=== PATIENT | female | born 1980 | race Caucasian/White ===

== ENCOUNTER 2016-11-22 17:31 | Emergency (ER) | payer MEDICARE, MEDICAID ==
[2016-11-22 19:28] VITALS: BP 122/66
--- NOTE | 2016-11-22 20:41 | UC ---
Lower Extremity/Ankle HPI - HPI Summary HPI Summary: 36 female presents today with close friend and fiance stating she experienced a fall over the past weekend 11/17/16 while ice skating and hit her left knee on the ice. Patient does not complain of any pain today however she has a home nurse that visits her that she told about the fall and was advised to come and have it checked out due to her osteoporosis history. Patient denies any pain, tenderness, edema, limited ROM, and numbness/tingling. She was just following instructions by her at home nurse. Denies hitting her head, LOC and any other injuries/pain. - History of Current Complaint Chief Complaint: UCLowerExtremity Stated Complaint: LEFT KNEE-FELL ON ICE Time Seen by Provider: 11/22/16 20:31 Hx Obtained From: Patient, Family/Drawing Frame Tender - friend and fiance Hx Last Menstrual Period: 11/02/16 ?: No Onset/Duration: Sudden Onset Severity Currently: None Pain Intensity: 0 Pain Scale Used: 0-10 Numeric Aggravating Factor(s): Nothing Alleviating Factor(s): Nothing Able to Bear Weight: Yes - Allergies/Home Medications Allergies/Adverse Reactions: Allergies Allergy/AdvReac Type Severity Reaction Status Date / Time Bee Venom Allergy Anaphylatic Verified 11/22/16 19:28 Shock BEE STINGS Allergy Severe Anaphylatic Uncoded 11/22/16 19:28 Shock PMH/Surg Hx/FS Hx/Imm Hx - Additional Past Medical History Additional PMH: osteoporosis, MR - Surgical History Surgical History: Yes Surgery Procedure, Year, and Place: WISDOM TEETH EXTRACTION WITH GENERAL ANESTHESIA - Family History Family History: Unknown if she has any medical issues in bio lineage--MR living in residential facility - Social History Alcohol Use: None Substance Use Type: None Smoking Status (MU): Never Smoked Tobacco - Immunization History Most Recent Influenza Vaccination: none Most Recent Tetanus Shot: 06/27/11 Review of Systems Constitutional: Negative Skin: Negative Eyes: Negative ENT: Negative Respiratory: Negative Cardiovascular: Negative Gastrointestinal: Negative Genitourinary: Negative Motor: Negative Neurovascular: Negative Musculoskeletal: Other: - does have a contusion on left knee Neurological: Negative Psychological: Negative All Other Systems Reviewed And Are Negative: Yes Physical Exam Triage Information Reviewed: Yes Appearance: Well-Appearing, No Pain Distress, Well-Nourished Vital Signs: Initial Vital Signs Temp 98.9 F 11/22/16 19:21 Pulse 67 11/22/16 19:21 Resp 16 11/22/16 19:21 BP 122/66 11/22/16 19:21 Pulse Ox 100 11/22/16 19:21 Vital Signs Reviewed: Yes Eye Exam: Normal Neck: Positive: Supple, Nontender Respiratory: Positive: Chest non-tender, Lungs clear, Normal breath sounds Cardiovascular: Positive: RRR, No Murmur, Pulses Normal - 3+ b/l pedal pulses, Brisk Capillary Refill Abdomen Description: Positive: Nontender Musculoskeletal: Positive: Strength Intact - able to bear weight and walk without pain, no hip or ankle pain. totally normal physical exam of lower extremities. no step-off, crepitus, dislocations or deformitites, ROM Intact, No Edema - healing ecchymosis noted on left anterior knee, medial to platella Neurological Exam: Normal Psychological Exam: Normal Skin Exam: Normal Lower Extremity Course/Dx - Course Course Of Treatment: due to history and physical exam, x-ray was not necessary at this time. if symptoms begin instructed to be seen back at or her primary care provider - Differential Dx/Diagnosis Differential Diagnosis/HQI/PQRI: Arthritis, Contusion, Dislocation, Sprain, Strain Provider Diagnoses: left knee contusion Discharge - Discharge Plan Condition: Good Disposition: HOME Patient Education Materials: Contusion in Adults (ED) Referrals: Shelbie Bermudez MD [Primary Care Provider] - Additional Instructions: If pain develops or symptoms change please return to or follow up with your primary care provider.
== END 2016-11-22 20:53 | disposition home or self-care (01) ==
LOC: UCCORT 17:31
DX: S80.02XA Contusion of left knee, initial encounter (principal); V00.211A Fall from ice-skates, initial encounter; Y93.21 Activity, ice skating; Y92.9 Unspecified place or not applicable
CPT/HCPCS: 99211; G0463

== ENCOUNTER 2017-03-17 15:02 | Emergency (ER) | payer MEDICARE, MEDICAID ==
[2017-03-17 16:33] VITALS: BP 114/71
--- NOTE | 2017-03-17 16:55 | UC ---
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 Skin Exposure Onset/Duration: Days Ago - 1, no known exposure Timing: Constant Onset Severity: Mild Current Severity: Mild Location: Discrete - Bilateral upper arms below t-shirt lines. Character: Pruritus, Redness - papules - Allergy/Home Medications Allergies/Adverse Reactions: Allergies Allergy/AdvReac Type Severity Reaction Status Date / Time Bee Venom Allergy Anaphylatic Verified 03/17/17 16:33 Shock BEE STINGS Allergy Severe Anaphylatic Uncoded 03/17/17 16:33 Shock Home Medications: Home Medications Azelastine 0.15% NASAL(NF) [Astepro 0.15% NASAL (NF)] 2 spray NASAL DAILY [History Confirmed 03/17/17] Benzoyl Peroxide [Clearasil Daily Clear Van] 10 % EX DAILY 03/17/17 [History Confirmed 03/17/17] Fexofenadine HCl [Allergy 24-Hr] 180 mg PO DAILY 03/17/17 [History Confirmed ] Norethindrone & Eth Estradiol [Dasetta ] 1 tab PO DAILY 03/17/17 [History Confirmed 03/17/17] Saline NASAL DROPS 0.65%* [Sodium Chloride 0.65% Nasal DROPS*] 2 drop BOTH NARES BID 03/17/17 [History Confirmed 03/17/17] Review of Systems Skin: Rash All Other Systems Reviewed And Are Negative: Yes PMH/Surg Hx/FS Hx/Imm Hx Previously Healthy: No - . Prader-Willi Syndrome - Surgical History Surgical History: Yes Surgery Procedure, Year, and Place: WISDOM TEETH EXTRACTION WITH GENERAL ANESTHESIA - Family History Known Family History: Negative: Cardiac Disease, Hypertension, Diabetes Family History: Unknown if she has any medical issues in bio lineage--MR living in residential facility - Social History Occupation: Disabled Lives: [facility] Alcohol Use: None Substance Use Type: None Smoking Status (MU): Never Smoked Tobacco Have You Smoked in the Last Year: No - Immunization History Most Recent Influenza Vaccination: none Most Recent Tetanus Shot: 8/30/11 Physical Exam Triage Information Reviewed: Yes Appearance: Well-Appearing, No Pain Distress, Well-Nourished Vital Signs: Initial Vital Signs Temp 99.4 F 03/17/17 16:24 Pulse 65 03/17/17 16:24 Resp 16 03/17/17 16:24 BP 114/71 03/17/17 16:24 Pulse Ox 98 03/17/17 16:24 Vital Signs Reviewed: Yes Eyes: Positive: Conjunctiva Clear Neck exam: Normal Respiratory Exam: Normal Cardiovascular Exam: Normal Abdominal Exam: Normal Musculoskeletal Exam: Normal Neurological Exam: Normal Psychological Exam: Normal Skin: Positive: rashes - erythematous papular rash on the dorsum of both arms Course/Dx - Differential Diagnoses - Skin Complaint Differential Diagnoses: Drug Rash, Local Allergic Reaction, Poison Vanesa, Scabies - Diagnoses Provider Diagnoses: Polymorphous Light Eruption Discharge - Discharge Plan Condition: Stable Disposition: HOME Patient Education Materials: Photosensitivity (ED) Additional Instructions: You should stay out of the sun and/ or use sunscreen. You can use the benedryl for itching. Polymorphous Light Eruption. Images Front/Back of Body, Lg (Crook): 1 - papular rash 2 - papular rash
== END 2017-03-17 17:43 | disposition home or self-care (01) ==
LOC: UCCORT 15:02
DX: L56.4 Polymorphous light eruption (principal); Q87.1 Congenital malformation syndromes predominantly associated with short stature; F79 Unspecified intellectual disabilities; Z91.030 Bee allergy status
CPT/HCPCS: 99211; G0463

== ENCOUNTER 2017-05-22 19:40 | Emergency (ER) | payer MEDICARE, MEDICAID ==
[2017-05-22 19:55] VITALS: BP 115/73
--- NOTE | 2017-05-22 20:36 | UC ---
Skin Complaint HPI - HPI Summary HPI Summary: patient has large swollen paraonychia on the right middle finger - History of Current Complaint Chief Complaint: UCUpperExtremity Time Seen by Provider: 05/22/17 19:55 Stated Complaint: SWOLLEN RIGHT MIDDLE FINGER Hx Obtained From: Patient Hx Last Menstrual Period: 05/02/17 ?: No Onset/Duration: Gradual Onset, Lasting Days Skin Exposure Onset/Duration: Days Ago Timing: Constant Onset Severity: Mild Current Severity: Moderate Character: Swelling Associated Signs & Symptoms: Positive: Negative - Allergy/Home Medications Allergies/Adverse Reactions: Allergies Allergy/AdvReac Type Severity Reaction Status Date / Time Bee Venom Allergy Anaphylatic Verified 05/22/17 19:55 Shock BEE STINGS Allergy Severe Anaphylatic Uncoded 05/22/17 19:55 Shock Review of Systems Constitutional: Negative Skin: Negative Eyes: Other - swelling of right middle finger ENT: Negative Respiratory: Negative Cardiovascular: Negative Gastrointestinal: Negative Genitourinary: Negative Motor: Negative Neurovascular: Negative Musculoskeletal: Negative Neurological: Negative Psychological: Negative All Other Systems Reviewed And Are Negative: Yes PMH/Surg Hx/FS Hx/Imm Hx Previously Healthy: Yes - Surgical History Surgical History: Yes Surgery Procedure, Year, and Place: WISDOM TEETH EXTRACTION WITH GENERAL ANESTHESIA - Family History Known Family History: Negative: Cardiac Disease, Hypertension, Diabetes Family History: Unknown if she has any medical issues in bio lineage--MR living in residential facility - Social History Alcohol Use: None Substance Use Type: None Smoking Status (MU): Never Smoked Tobacco Have You Smoked in the Last Year: No - Immunization History Most Recent Influenza Vaccination: none Most Recent Tetanus Shot: 06/27/11 Physical Exam Triage Information Reviewed: Yes Appearance: Well-Appearing, Well-Nourished, Pain Distress Vital Signs: Initial Vital Signs Temp 98.1 F 05/22/17 19:50 Pulse 72 05/22/17 19:50 Resp 14 05/22/17 19:50 BP 115/73 05/22/17 19:50 Pulse Ox 100 05/22/17 19:50 Vital Signs Reviewed: Yes Eye Exam: Normal ENT Exam: Normal ENT: Positive: Hearing grossly normal, Pharynx normal, TMs normal Dental Exam: Normal Neck exam: Normal Neck: Positive: Supple, Nontender, No Lymphadenopathy Respiratory Exam: Normal Respiratory: Positive: Chest non-tender, Lungs clear Cardiovascular Exam: Normal Cardiovascular: Positive: RRR, No Murmur, Pulses Normal Abdominal Exam: Normal Abdomen Description: Positive: Nontender, No Organomegaly, Soft Bowel Sounds: Positive: Present Musculoskeletal Exam: Normal Musculoskeletal: Positive: Strength Intact, ROM Intact, No Edema Neurological Exam: Normal Neurological: Positive: Alert, Muscle Tone Normal Psychological Exam: Normal Skin: Positive: Other - right middle finger paronychia, Course/Dx - Course Course Of Treatment: hx obtained, exam performed, medication reviewed, i and d attempted, patient did not tolerate, warm water soak performed and educated on need for the next few days. - Differential Diagnoses - Skin Complaint Differential Diagnoses: Cellulitis, Local Allergic Reaction, Urticaria - Diagnoses Provider Diagnoses: paronychia of the right middle finger Discharge - Discharge Plan Condition: Stable Disposition: HOME Patient Education Materials: Paronychia (ED) Additional Instructions: 1. take the medication as prescribed. 2. Warm water soaks 3 x a day.
[2017-05-22] MEDS ORDERED: Cephalexin CAP* 500 MG PO ONE (20:39)
== END 2017-05-22 20:49 | disposition home or self-care (01) ==
LOC: UCCORT 19:40
DX: L03.011 Cellulitis of right finger (principal); Z91.030 Bee allergy status
CPT/HCPCS: 99212; A9270-GY; G0463

== ENCOUNTER 2017-09-29 11:15 | Emergency (ER) | payer MEDICARE, MEDICAID ==
[2017-09-29 12:37] VITALS: BP 115/71
--- NOTE | 2017-09-29 13:12 | UC ---
Throat Pain/Nasal Daquan HPI - HPI Summary HPI Summary: no fevers, a couple days of cough with sore throat, no nasal drainage or ear aches - History of Current Complaint Chief Complaint: UCRespiratory Stated Complaint: THROAT COMPLAINT Time Seen by Provider: 09/29/17 12:56 Hx Obtained From: Patient Hx Last Menstrual Period: September 14 ?: No Onset/Duration: Gradual Onset, Lasting Days - 2-3, Still Present Severity: Moderate Cough: None - Allergies/Home Medications Allergies/Adverse Reactions: Allergies Allergy/AdvReac Type Severity Reaction Status Date / Time Bee Venom Allergy Anaphylatic Verified 09/29/17 12:31 Shock BEE STINGS Allergy Severe Anaphylatic Uncoded 09/29/17 12:31 Shock PMH/Surg Hx/FS Hx/Imm Hx Previously Healthy: No - MR Psychological History: Depression - Surgical History Surgical History: Yes Surgery Procedure, Year, and Place: WISDOM TEETH EXTRACTION WITH GENERAL ANESTHESIA. nose - Family History Known Family History: Negative: Cardiac Disease, Hypertension, Diabetes Family History: Unknown if she has any medical issues in bio lineage--MR living in residential facility - Social History Occupation: Employed Part-time, Disabled Lives: Assisted Living Alcohol Use: None Substance Use Type: None Smoking Status (MU): Never Smoked Tobacco Have You Smoked in the Last Year: No - Immunization History Most Recent Influenza Vaccination: none Most Recent Tetanus Shot: 06/27/11 Review of Systems Constitutional: Negative Skin: Negative Eyes: Negative ENT: Sore Throat Respiratory: Cough Cardiovascular: Negative Gastrointestinal: Negative Genitourinary: Negative Motor: Negative Neurovascular: Negative Musculoskeletal: Negative Neurological: Negative Psychological: Negative Is Patient Immunocompromised?: No All Other Systems Reviewed And Are Negative: Yes Physical Exam Triage Information Reviewed: Yes Appearance: Well-Appearing, No Pain Distress, Well-Nourished Vital Signs: Initial Vital Signs Temp 98.5 F 09/29/17 12:33 Pulse 63 09/29/17 12:33 Resp 18 09/29/17 12:33 BP 115/71 09/29/17 12:33 Pulse Ox 100 09/29/17 12:33 Vital Signs Reviewed: Yes Eye Exam: Normal Eyes: Positive: Conjunctiva Clear ENT Exam: Normal ENT: Positive: Normal ENT inspection, Hearing grossly normal, Pharynx normal, TMs normal, Uvula midline. Negative: Nasal congestion, Tonsillar swelling, Trismus, Muffled voice, Hoarse voice, Sinus tenderness Dental Exam: Normal Neck exam: Normal Neck: Positive: Supple, Nontender, No Lymphadenopathy Respiratory Exam: Normal Respiratory: Positive: Chest non-tender, Lungs clear, Normal breath sounds, No respiratory distress, No accessory muscle use Cardiovascular Exam: Normal Cardiovascular: Positive: RRR, No Murmur, Pulses Normal, Brisk Capillary Refill Musculoskeletal Exam: Normal Musculoskeletal: Positive: Strength Intact, ROM Intact, No Edema Neurological Exam: Normal Neurological: Positive: Alert, Muscle Tone Normal Psychological Exam: Normal Skin Exam: Normal Throat Pain/Nasal Course/Dx - Course Assessment/Plan: fluids as diet tolerates, tessalon, sudafed, tylenol, ibuprofen follow with nurse in facility on Sunday - Differential Dx/Diagnosis Provider Diagnoses: URI, Viral Pharyngitis Discharge - Discharge Plan Condition: Stable Disposition: HOME Prescriptions: Benzonatate CAP* [Tessalon 100 MG CAP*] 100 mg PO TID PRN #20 cap PRN Reason: Cough Patient Education Materials: Cold Symptoms (ED), Acute Cough (ED) Referrals: Ileana Bermudez MD [Primary Care Provider] - 4 Days
== END 2017-09-29 13:25 | disposition home or self-care (01) ==
LOC: UCCORT 11:15
DX: J06.9 Acute upper respiratory infection, unspecified (principal); J02.9 Acute pharyngitis, unspecified; F32.9 Major depressive disorder, single episode, unspecified
CPT/HCPCS: 87651; 99212; G0463

== ENCOUNTER 2017-11-04 17:50 | Emergency (ER) | payer MEDICARE, MEDICAID ==
[2017-11-04 18:31] VITALS: BP 123/74
--- NOTE | 2017-11-04 18:49 | UC ---
Skin Complaint HPI - HPI Summary HPI Summary: C/O itching rash on both feet since yesterday. Started left foot, now both feet. - History of Current Complaint Chief Complaint: UCSkin Time Seen by Provider: 11/04/17 18:40 Stated Complaint: SKIN COMPLAINT ON FEET Hx Obtained From: Patient, Family/Yardmaster Hx Last Menstrual Period: September 14 ?: No Onset/Duration: Sudden Onset, Lasting Days - 1, Worse Since - onset Skin Exposure Onset/Duration: Days Ago - new jorge socks that haven't been washed. Onset Severity: Mild Current Severity: Mild Location: Foot (Right), Foot (Left) Character: Pruritus, Redness Aggravating Factor(s): Touch Alleviating Factor(s): Nothing Associated Signs & Symptoms: Positive: Rash. Negative: Drainage, Tenderness, Red Streaks Related History: Possible Reaction to: Environmental Exposure - new socks. - Allergy/Home Medications Allergies/Adverse Reactions: Allergies Allergy/AdvReac Type Severity Reaction Status Date / Time Bee Venom Allergy Anaphylatic Verified 11/04/17 18:31 Shock BEE STINGS Allergy Severe Anaphylatic Uncoded 11/04/17 18:31 Shock Review of Systems Skin: Rash Is Patient Immunocompromised?: No All Other Systems Reviewed And Are Negative: Yes PMH/Surg Hx/FS Hx/Imm Hx Other Neurological History: MR and Prader Willi - Surgical History Surgical History: Yes Surgery Procedure, Year, and Place: WISDOM TEETH EXTRACTION WITH GENERAL ANESTHESIA. nose - Family History Known Family History: Negative: Cardiac Disease, Hypertension, Diabetes Family History: Unknown if she has any medical issues in bio lineage--MR living in residential facility - Social History Occupation: Disabled Lives: [facility] Alcohol Use: None Substance Use Type: None Smoking Status (MU): Never Smoked Tobacco Have You Smoked in the Last Year: No - Immunization History Most Recent Influenza Vaccination: none Most Recent Tetanus Shot: 06/27/11 Physical Exam Triage Information Reviewed: Yes Appearance: Well-Appearing, No Pain Distress, Well-Nourished Vital Signs: Initial Vital Signs Temp 99.6 F 11/04/17 18:26 Pulse 72 11/04/17 18:26 Resp 14 11/04/17 18:26 BP 123/74 11/04/17 18:26 Pulse Ox 100 11/04/17 18:26 Vital Signs Reviewed: Yes Eyes: Positive: Conjunctiva Clear Neck exam: Normal Respiratory Exam: Normal Cardiovascular Exam: Normal Musculoskeletal Exam: Normal Neurological Exam: Normal Psychological Exam: Normal Skin: Positive: rashes - erythematous papular rash on the dorsal feet. Course/Dx - Differential Diagnoses - Skin Complaint Differential Diagnoses: Allergic Reaction, Contact Dermatitis, Local Allergic Reaction, Urticaria - Diagnoses Provider Diagnoses: contact dermatitis. Discharge - Discharge Plan Condition: Stable Disposition: HOME Prescriptions: Triamcinolone 0.1% CREAM (NF) [Kenalog 0.1% Cream (NF)] 1 applic TOPICAL BID # 15 gm Patient Education Materials: Contact Dermatitis (ED), Triamcinolone (On the skin) Referrals: Ileana Bermudez MD [Primary Care Provider] -
== END 2017-11-04 19:17 | disposition home or self-care (01) ==
LOC: UCCORT 17:50
DX: L25.9 Unspecified contact dermatitis, unspecified cause (principal)
CPT/HCPCS: 99212; G0463

== ENCOUNTER 2018-01-03 16:34 | Emergency (ER) | payer MEDICARE, MEDICAID ==
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
[2018-01-03] MEDS ORDERED: Acetaminophen TAB* 325 MG PO ONE (17:24)
--- NOTE | 2018-01-03 19:06 | RAD ---
Indication: Head injury. CT of the brain was performed without IV contrast. Ventricular structures are midline. No midline shift is noted. The extra-axial spaces are unremarkable. There is no evidence of intracranial mass or hemorrhage. No other high or low density lesions are identified. Mastoid air cells and paranasal sinuses are grossly unremarkable. IMPRESSION: No intracranial mass or hemorrhage is noted.
[2018-01-03 19:10] VITALS: BP 126/86
== END 2018-01-03 19:16 | disposition home or self-care (01) ==
LOC: UCCORT 16:34
DX: S09.90XA Unspecified injury of head, initial encounter (principal); S00.93XA Contusion of unspecified part of head, initial encounter; Y04.8XXA Assault by other bodily force, initial encounter; Y93.9 Activity, unspecified; Y92.099 Unspecified place in other non-institutional residence as the place of occurrence of the external cause; R62.50 Unspecified lack of expected normal physiological development in childhood
CPT/HCPCS: 70450; 99212; A9270-GY; G0463

== ENCOUNTER 2018-04-12 07:07 | Emergency (ER) | payer MEDICARE, MEDICAID ==
[2018-04-12 07:28] VITALS: BP 120/72
--- NOTE | 2018-04-12 07:40 | UC ---
Upper Extremity HPI - HPI Summary HPI Summary: 38 yo female c/o R wrist pain, redness / swelling since yesterday. Hurts to move wrist, but able to move wrist. No fever / chills. No recall of a bite. No other arthritis / arthralgias. No gi / cp / sob / palp / sore throat. Tet utd per pt. - History of Current Complaint Chief Complaint: UCUpperExtremity Stated Complaint: RT WRIST PAIN Time Seen by Provider: 04/12/18 07:26 Hx Obtained From: Patient, Family/Detective Private Eye Hx Last Menstrual Period: 03/12/18 Pain Intensity: 9 - Allergies/Home Medications Allergies/Adverse Reactions: Allergies Allergy/AdvReac Type Severity Reaction Status Date / Time BEE STINGS Allergy Severe Anaphylatic Uncoded 04/12/18 07:28 Shock Home Medications: Home Medications Sodium Chloride/Aloe Vera [[place] Saline Nasal Gel] 14.1 gm NS BID 04/12/18 [ History Confirmed 04/12/18] PMH/Surg Hx/FS Hx/Imm Hx Previously Healthy: Yes - Surgical History Surgical History: Yes Surgery Procedure, Year, and Place: WISDOM TEETH EXTRACTION WITH GENERAL ANESTHESIA. SEPTOPLASTY - Family History Known Family History: Negative: Cardiac Disease, Hypertension, Diabetes Family History: Unknown if she has any medical issues in bio lineage--MR living in residential facility - Social History Alcohol Use: None Substance Use Type: None Smoking Status (MU): Never Smoked Tobacco Have You Smoked in the Last Year: No - Immunization History Most Recent Influenza Vaccination: none Most Recent Tetanus Shot: 06/27/11 Review of Systems Constitutional: Negative Skin: Other - see hpi Eyes: Negative ENT: Negative Respiratory: Negative Cardiovascular: Negative Gastrointestinal: Negative Genitourinary: Negative Motor: Other - see hpi Neurovascular: Other - see hpi Musculoskeletal: Arthralgia - see hpi Neurological: Negative Psychological: Negative Is Patient Immunocompromised?: No All Other Systems Reviewed And Are Negative: Yes Physical Exam Triage Information Reviewed: Yes Appearance: Well-Appearing, Well-Nourished Vital Signs: Initial Vital Signs Temp 99.2 F 04/12/18 07:17 Pulse 65 04/12/18 07:17 Resp 16 04/12/18 07:17 BP 120/72 04/12/18 07:17 Pulse Ox 100 04/12/18 07:17 Vital Signs Reviewed: Yes Eye Exam: Normal - grossly normal ENT Exam: Normal - grossly normal Neck exam: Normal Neck: Positive: Supple Respiratory Exam: Normal - no tachypnea, no dyspnea Cardiovascular Exam: Normal Abdominal Exam: Normal Abdomen Description: Positive: Nontender Musculoskeletal Exam: Other - Pt is both handed, writes with LH R distal wrist - with + redness, slight warm to touch, irreg shape - approx 5cm x 2.8cm. Tender pressure. No crepitus. Able to move wrist in all directions but painful Neurological Exam: Normal - grossly nonfocal Psychological Exam: Normal Skin Exam: Other - see mucs skel no other c/o's Upper Extremity Course/Dx - Course Course Of Treatment: Wrist xray - report in [facility]. Nonspec swelling. Reviewed coa / tx plan. Questions as posed answered to the best of my ability. F/u PCP next week. R wrist pain, swelling c/w cellulitis. c/n exclude inflamm arthritis - Differential Dx/Diagnosis Provider Diagnoses: R wrist pain, swelling c/w cellulitis Discharge - Sign-Out/Discharge Documenting (check all that apply): Discharge/Admit/Transfer - Discharge Plan Condition: Stable Disposition: HOME Patient Education Materials: Cellulitis (ED), Arthralgia (ED) Forms: *Work Release Referrals: Ileana Bermudez MD [Primary Care Provider] - Additional Instructions: Concern is for cellulitis. Blood tests ordered today. Follow up with your primary care physician next week. Confirm your tetanus immunization status. Seek medical attention for worse or new problems in the meantime. Splint as needed for comfort. No work until Sunday. Antibiotic as prescribed. Do not take on an empty stomach. Avoid prolonged sun exposure while taking antibiotic. Drink plenty of water. Do not take antibiotic within 2 hours of your vitamin or milk. - Billing Disposition and Condition Condition: STABLE Disposition: Home
--- NOTE | 2018-04-12 08:10 | RAD ---
INDICATION: Painful redness and swelling at the distal RIGHT ulna. COMPARISON: No relevant prior exams [place] [facility] [place]. TECHNIQUE: AP and lateral views RIGHT wrist. REPORT: Soft tissue swelling noted along the ulnar aspect of the wrist from the distal diaphysis of the ulna through the metacarpal region. Negative for fracture, malalignment, or arthropathic change. IMPRESSION: Nonspecific soft tissue swelling along the ulnar aspect of the wrist. No conspicuous foreign body or subcutaneous emphysema.
[2018-04-12 11:29] LABS: ABS Basophils 0 10^3/ul (0-0.2); ABS Eosinophils 0.2 10^3/ul (0-0.6); ABS Lymphocytes 1.2 10^3/ul (1.0-4.8); ABS Monocytes 0.4 10^3/ul (0-0.8); ABS Neutrophils 3.8 10^3/ul (1.5-7.7); ABS Nucleated RBC 0 10^3/ul; Eosinophil % 3.7 % (0-6); Hematocrit 40 % (35-47); Hemoglobin 13.1 g/dl (12.0-16.0); Lymphocyte % 21.7 % (25-47); Mean Corpuscular HGB Conc 33 g/dl (31-36); Mean Corpuscular Hemoglobin 31 pg (27-31); Mean Corpuscular Volume 92 fL (80-97); Mean Platelet Volume 9.4 um3 (7.4-10.4); Nucleated Red Blood Cells % 0; Platelet Count 235 10^3/ul (150-450); Red Blood Count 4.29 10^6/ul (4.00-5.40); Red Cell Distribution Width 13 % (10.5-15); White Blood Count 5.7 10^3/ul (3.5-10.8)
--- NOTE | 2018-04-13 08:24 | ED ---
Progress - Progress Note Progress Note: Please call the patient and advise her that her inflammatory markers have come back high. Unless her wrist is completely better and pain free she should go to the ER in [place] at [facility] to be seen by the hand surgeon to be sure she does not have a septic wrist. Course/Dx - Course Course Of Treatment: Wrist xray - report in [facility]. Nonspec swelling. Reviewed coa / tx plan. Questions as posed answered to the best of my ability. F/u PCP next week. R wrist pain, swelling c/w cellulitis. c/n exclude inflamm arthritis Discharge - Sign-Out/Discharge Documenting (check all that apply): Discharge/Admit/Transfer - Discharge Plan Condition: Stable Disposition: HOME Prescriptions: DOXYcycline CAP(*) [DOXYcycline 100MG CAP(*)] 100 mg PO BID #20 cap Patient Education Materials: Cellulitis (ED), Arthralgia (ED) Forms: *Work Release Referrals: Ileana Bermudez MD [Primary Care Provider] - Additional Instructions: Concern is for cellulitis. Blood tests ordered today. Follow up with your primary care physician next week. Confirm your tetanus immunization status. Seek medical attention for worse or new problems in the meantime. Splint as needed for comfort. No work until Sunday. Antibiotic as prescribed. Do not take on an empty stomach. Avoid prolonged sun exposure while taking antibiotic. Drink plenty of water. Do not take antibiotic within 2 hours of your vitamin or milk. - Billing Disposition and Condition Condition: STABLE Disposition: Home
== END 2018-04-12 08:38 | disposition home or self-care (01) ==
LOC: UCCORT 07:07
DX: M25.531 Pain in right wrist (principal); M25.431 Effusion, right wrist
CPT/HCPCS: 36415; 85025; 85652; 86140; 99213; G0463

== ENCOUNTER 2018-06-10 12:41 | Emergency (ER) | payer MEDICARE, MEDICAID ==
[2018-06-10 13:17] VITALS: BP 117/74
--- NOTE | 2018-06-10 13:41 | UC ---
Eye Complaint HPI - HPI Summary HPI Summary: pt had a pimple to bridge of nose yesterday and picked it. today, the site is red and swollen. no hx mrsa. no fever. - History of Current Complaint Chief Complaint: UCEye Stated Complaint: SWOLLEN RIGHT EYE Time Seen by Provider: 06/10/18 13:34 Hx Obtained From: Patient, Family/Credentialing Coordinator Hx Last Menstrual Period: unsure-on bcp Onset/Duration: Gradual Onset Timing: Constant Pain Intensity: 0 Alleviating Factor(s): Nothing Associated Signs And Symptoms: Negative: Photophobia, Vision Impairment Bilateral - Allergies/Home Medications Allergies/Adverse Reactions: Allergies Allergy/AdvReac Type Severity Reaction Status Date / Time BEE STINGS Allergy Severe Anaphylatic Uncoded 06/10/18 13:08 Shock PMH/Surg Hx/FS Hx/Imm Hx - Additional Past Medical History Additional PMH: allergies, cognitive limitations Psychological History: Anxiety - Surgical History Surgical History: Yes Surgery Procedure, Year, and Place: WISDOM TEETH EXTRACTION WITH GENERAL ANESTHESIA. SEPTOPLASTY - Family History Known Family History: Positive: None Negative: Cardiac Disease, Hypertension, Diabetes Family History: Unknown if she has any medical issues in bio lineage--MR living in residential facility - Social History Occupation: Employed Full-time Lives: Assisted Alcohol Use: None Substance Use Type: None Smoking Status (MU): Never Smoked Tobacco Have You Smoked in the Last Year: No - Immunization History Most Recent Influenza Vaccination: none Most Recent Tetanus Shot: 06/27/11 Vaccination Up to Date: Yes Review of Systems Constitutional: Negative Skin: Rash Eyes: Negative ENT: Negative Respiratory: Negative Cardiovascular: Negative Gastrointestinal: Negative Genitourinary: Negative Motor: Negative Neurovascular: Negative Musculoskeletal: Negative Neurological: Negative Psychological: Negative Is Patient Immunocompromised?: No All Other Systems Reviewed And Are Negative: Yes Physical Exam Triage Information Reviewed: Yes Appearance: Well-Appearing Vital Signs: Initial Vital Signs Temp 99.6 F 06/10/18 13:09 Pulse 69 06/10/18 13:09 Resp 18 06/10/18 13:09 BP 117/74 06/10/18 13:09 Pulse Ox 100 06/10/18 13:09 Vital Signs Reviewed: Yes Eyes: Positive: Conjunctiva Clear, Other: - PERRL, EOMI. No periorbital edema. ENT: Positive: Pharynx normal, TMs normal. Negative: Nasal congestion, Nasal drainage Neck: Positive: Supple, Nontender, No Lymphadenopathy Respiratory: Positive: Lungs clear, Normal breath sounds Cardiovascular: Positive: RRR, No Murmur Abdomen Description: Positive: Nontender, No Organomegaly, Soft Bowel Sounds: Positive: Present Musculoskeletal: Positive: ROM Intact Neurological: Positive: Alert Psychological: Positive: Age Appropriate Behavior Skin Exam: Normal, Other - R side of nose with an abrasion and surrounding mild swelling, warmth and erythema. Area not fluctuant. No auricular adenopathy. Eye Complaint Course/Dx - Course Course Of Treatment: no concern for absecess or periorbital/orbital cellulitis. - Differential Dx/Diagnosis Provider Diagnoses: Superficial skin infection R side of nose Discharge - Sign-Out/Discharge Documenting (check all that apply): Patient Departure - Discharge Plan Condition: Stable Disposition: HOME Prescriptions: Cephalexin CAP* [Keflex CAP*] 500 mg PO TID 7 Days #21 cap Mupirocin 2% OINT* [Bactroban 2 % Oint*] 1 applic TOPICAL BID 7 Days #1 tube Patient Education Materials: Cellulitis (ED) Referrals: Ileana Bermudez MD [Primary Care Provider] - 3 Days - Billing Disposition and Condition Condition: STABLE Disposition: Home
== END 2018-06-10 14:01 | disposition home or self-care (01) ==
LOC: UCCORT 12:41
DX: L08.9 Local infection of the skin and subcutaneous tissue, unspecified (principal)
CPT/HCPCS: 99212; G0463

== ENCOUNTER 2018-11-04 14:31 | Emergency (ER) | payer MEDICARE, MEDICAID ==
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
[2018-11-04 15:05] VITALS: BP 128/76
--- NOTE | 2018-11-04 15:07 | UC ---
Head Injury HPI - HPI Summary HPI Summary: Patient presents to urgent care for evaluation of a scalp wound. Patient states that approximately 12:30pm today she was putting laundry away and her dresser. Patient states she had a snow globe that fell off a dresser on the top of her head. Patient states is notable did not break.. No blood or open wounds. No blood HEENT. No loss of consciousness. No vision changes. No nausea. No confusion. No headache. No vision changes. Patient's issues has tenderness on her scalp at the site of injury. Patient states when she touches injury she feels as a dent wanted checked. Patient has a when necessary ibuprofen order she was in a halfway. Patient did not take any. Patient is not applied ice. Patient states she has no complaints other than when she touches the wound. Patient is not on any anticoagulation. Patient medication list/ MAR reviewed this visit. 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, Medical Records Hx Last Menstrual Period: infrequent due to BCP use ?: No Onset/Duration: Sudden Onset Severity Currently: None Severity Initially: Mild Pain Intensity: 0 - Allergies/Home Medications Allergies/Adverse Reactions: Allergies Allergy/AdvReac Type Severity Reaction Status Date / Time BEE STINGS Allergy Severe Anaphylatic Uncoded 11/04/18 14:58 Shock PMH/Surg Hx/FS Hx/Imm Hx Previously Healthy: Yes - Prader Willi Syndrome Endocrine History: Hypothyroidism, Other - hypoglycemia, hyponatremia - Surgical History Surgical History: Yes Surgery Procedure, Year, and Place: WISDOM TEETH EXTRACTION WITH GENERAL ANESTHESIA. SEPTOPLASTY - Family History Known Family History: Positive: None Negative: Cardiac Disease, Hypertension, Diabetes Family History: Unknown if she has any medical issues in bio lineage--MR living in residential facility - Social History Lives: Jail Alcohol Use: None Substance Use Type: None Smoking Status (MU): Never Smoked Tobacco Have You Smoked in the Last Year: No - Immunization History Most Recent Influenza Vaccination: none Most Recent Tetanus Shot: 06/27/11 Vaccination Up to Date: Yes Review of Systems All Other Systems Reviewed And Are Negative: Yes Skin: Positive: Other - focal scalp swelling Physical Exam - Summary Physical Exam Summary: Vital Signs Reviewed: Yes A+Ox3, no distress Eyes: Conjunctiva Clear, RAVI. EOM intact and full ENT: Hearing grossly normal TM x 2 clear, mmoist, uvula midline, no exudate, no erythema Neck: Positive: Supple Respiratory: Positive: No respiratory distress, No accessory muscle use + CTA throughout no w/r Cardiovascular: RRR nl s1, s2 no m/r CBT <2 sec abd soft + BS nt/nd no guarding, no distension Musculoskeletal Exam: neck supple no pain c/t//l/sMAE x 4 without difficulty Strength Intact, ROM Intact Neurological: Positive: Alert, + sensation throughout skin: intact, no abraison, open wound posterior margin of frontal area pt with small soft tissue swelling. No ecchymosis, Not fluctuant no crepitus mild TTP CN 2-12 intact and full + FNF b/l 5/5 abduction, flex/ext elbow, wrist against resistant 5/5 SLE, flex/ext knee, ankle + gross sensation throughout neg rhomberg + heel/toe tandem + heel/toe rocking Psychological: Positive: Normal Response To Family, appropriate Triage Information Reviewed: Yes Vital Signs: Initial Vital Signs Temp 99.3 F 11/04/18 15:00 Pulse 85 11/04/18 15:00 Resp 18 11/04/18 15:00 BP 128/76 11/04/18 15:00 Pulse Ox 98 11/04/18 15:00 Head Injury Course/Dx - Course Course Of Treatment: Pt presents to urgent care for evaluation of a scalp contusion that occurred at 12:30pm today when a snow globe fell off her dresser. No loss of consciousness. No blood HEENT. Patient with focal soft tissue swelling and discomfort. no neck or back pain. non-concerning neuro exam. Patient did not take anything for pain. Patient apply ice. Patient is not on any blood thinners. Patient's vital signs reviewed and not concerning. On exam patient with soft tissue to swelling but no crepitus. Discussed with patient and home care consultant at length regarding concussions and closed head injury. Low suspicion for intracranial process and will defer imaging at this time. Signs and symptoms to watch for reviewed. Patient has a. Motrin or encourage her to take it. Also wrote for patient. Use ice as needed. Patient comfortable in agreement with plan. - Differential Dx/Diagnosis Provider Diagnosis: Contusion of soft tissue, Head contusion Discharge - Sign-Out/Discharge Documenting (check all that apply): Patient Departure All imaging exams completed and their final reports reviewed: No Studies - Discharge Plan Condition: Stable Disposition: HOME Patient Education Materials: Contusion in Adults (ED) Referrals: Ileana Bermudez MD [Primary Care Provider] - Additional Instructions: - Okay to apply ice (wrapped in a towel) 10 minutes at a time, 2-3 times a day as needed for discomfort and swelling - Okay to take ibuprofen (Motrin, Advil) as needed and previously prescribed ordered for pain - If you develop confusion, vomiting, vision changes, difficulty with walking and balance it is recommended you go to the emergency department or contact your doctor for re-evaluation - Billing Disposition and Condition Condition: STABLE Disposition: Home
== END 2018-11-04 15:30 | disposition home or self-care (01) ==
LOC: UCCORT 14:31
DX: S00.03XA Contusion of scalp, initial encounter (principal); W20.8XXA Other cause of strike by thrown, projected or falling object, initial encounter; Y93.89 Activity, other specified; Y92.003 Bedroom of unspecified non-institutional (private) residence as the place of occurrence of the external cause
CPT/HCPCS: 99211; G0463

== ENCOUNTER 2019-01-18 16:44 | Emergency (ER) | payer MEDICARE, MEDICAID ==
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
[2019-01-18 17:01] VITALS: BP 135/83
--- NOTE | 2019-01-18 17:12 | UC ---
UC General HPI - HPI Summary HPI Summary: yesterday, pt noted the back and sides of her neck were sore. today,she is c/o a sore throat as well. neck pain worsens when she turns her head and the sore throat is worse when she swallows. no fever. no injury. 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 Hx Last Menstrual Period: last month Onset/Duration: Gradual Onset Timing: Constant Pain Intensity: 9 Associated Signs & Symptoms: Negative: Fever, Headache - Allergy/Home Medications Allergies/Adverse Reactions: Allergies Allergy/AdvReac Type Severity Reaction Status Date / Time BEE STINGS Allergy Severe Anaphylatic Uncoded 01/18/19 16:55 Shock PMH/Surg Hx/FS Hx/Imm Hx - Additional Past Medical History Additional PMH: allergies, prader willi syndrom, mild MR, hypoglycemia, hyponatremia Psychological History: Depression - Surgical History Surgical History: Yes Surgery Procedure, Year, and Place: WISDOM TEETH EXTRACTION WITH GENERAL ANESTHESIA. SEPTOPLASTY - Family History Known Family History: Positive: None Negative: Cardiac Disease, Hypertension, Diabetes Family History: Unknown if she has any medical issues in bio lineage--MR living in residential facility - Social History Occupation: Employed Part-time Alcohol Use: None Substance Use Type: None Smoking Status (MU): Never Smoked Tobacco Have You Smoked in the Last Year: No - Immunization History Most Recent Influenza Vaccination: none Most Recent Tetanus Shot: 06/27/11 Vaccination Up to Date: Yes Review of Systems All Other Systems Reviewed And Are Negative: Yes ENT: Positive: Sore Throat Musculoskeletal: Positive: Other: - neck pain Physical Exam Triage Information Reviewed: Yes Appearance: Well-Appearing Vital Signs: Initial Vital Signs Temp 98.1 F 01/18/19 16:57 Pulse 91 01/18/19 16:57 Resp 18 01/18/19 16:57 BP 135/83 01/18/19 16:57 Pulse Ox 100 01/18/19 16:57 Vital Signs Reviewed: Yes Eyes: Positive: Conjunctiva Clear ENT: Positive: Pharynx normal - dry but no swelling, TMs normal, Uvula midline. Negative: Nasal congestion, Nasal drainage, Trismus, Muffled voice, Hoarse voice Neck: Positive: No Lymphadenopathy, Other: - Tender over sides of posterior cervical area and sternocleidomastoid mm's. The cervical spine is not tender. Pain worsens with active rom. ROM is intact. Thoracic and lumbar spine and back are not tender.. Negative: Nuchal Rigidity Respiratory: Positive: Lungs clear, Normal breath sounds, No respiratory distress Cardiovascular: Positive: RRR, No Murmur Abdomen Description: Positive: Nontender, No Organomegaly, Soft Bowel Sounds: Positive: Present Musculoskeletal: Positive: ROM Intact Neurological: Positive: Alert Psychological: Positive: Normal Response To Family - supervisor cold rolling, Age Appropriate Behavior - per pt baseline Skin Exam: Normal Skin: Negative: Rashes Diagnostics - Radiology No standard instances Radiology Interpretation Completed By: Radiologist - IMPRESSION: UNREMARKABLE SOFT TISSUES OF THE NECK. Course/Dx - Course Course Of Treatment: pt and her supervisor cold rolling state pt's mouth always dry due to fluid restrictions for her hyponatremia. rapid strep=negative. - Differential Dx - Multi-Symptom Differential Diagnoses: Other - rapid strep=negative. the soft tissue neck is unremarkable. no concern for peritonsil or retropharyngeal abscess. no concern for meningitis. no indication for antibiotics. will tx with an nsaid and close f /u. - Diagnoses Provider Diagnosis: Sore throat, Neck ache Discharge - Sign-Out/Discharge Documenting (check all that apply): Patient Departure All imaging exams completed and their final reports reviewed: Yes - Discharge Plan Condition: Stable Disposition: HOME Prescriptions: Ibuprofen TAB* [Motrin TAB* 600 MG] 600 mg PO Q8H PRN #15 tab PRN Reason: Pain Patient Education Materials: Pharyngitis (ED), Acute Neck Pain (ED) Referrals: Ileana Bermudez MD [Primary Care Provider] - 3 Days Additional Instructions: GO TO THE ER FOR ANY WORSENING - Billing Disposition and Condition Condition: STABLE Disposition: Home - Attestation Statements Provider Attestation: Per institutional requirements, I have reviewed the chart, however, I was not consulted specifically or made aware of this patient by the midlevel provider. I did not personally evaluate, interact with , or disposition this patient.
[2019-01-18] MEDS ORDERED: Ibuprofen ADULT LIQ* 600 MG/30 ML UDC PO ONE (17:19)
== END 2019-01-18 18:17 | disposition home or self-care (01) ==
LOC: UCCORT 16:44
DX: J02.9 Acute pharyngitis, unspecified (principal); M54.2 Cervicalgia; E87.1 Hypo-osmolality and hyponatremia; Z91.030 Bee allergy status
CPT/HCPCS: 70360; 87651; 99212; A9270-GY; G0463

== ENCOUNTER 2019-07-01 16:55 | Emergency (ER) | payer MEDICARE, MEDICAID ==
[2019-07-01 18:53] VITALS: BP 124/71
--- NOTE | 2019-07-01 19:27 | UC ---
General HPI - HPI Summary HPI Summary: pt is c/o red spots on her lower legs for about 2 days. she denies any hx of current or recent illness. she denies any insect bites. she denies and new medications or changes to current medications. she has no associated fever or itch. the areas are a little tender but not painful. she has no other rashes. - History of Current Complaint Chief Complaint: UCSkin Stated Complaint: SKIN COMPLAINT Time Seen by Provider: 07/01/19 19:14 Hx Obtained From: Patient Hx Last Menstrual Period: last month Onset/Duration: Gradual Onset Timing: Constant Pain Intensity: 0 - Allergy/Home Medications Allergies/Adverse Reactions: Allergies Allergy/AdvReac Type Severity Reaction Status Date / Time BEE STINGS Allergy Severe Anaphylatic Uncoded 07/01/19 18:54 Shock PMH/Surg Hx/FS Hx/Imm Hx - Additional Past Medical History Additional PMH: allergies, mild cognitive limitation Psychological History: Depression - Surgical History Surgical History: Yes Surgery Procedure, Year, and Place: WISDOM TEETH EXTRACTION WITH GENERAL ANESTHESIA. SEPTOPLASTY - Family History Known Family History: Positive: None Negative: Cardiac Disease, Hypertension, Diabetes Family History: Unknown if she has any medical issues in bio lineage--MR living in residential facility - Social History Lives: Assisted Living Alcohol Use: None Substance Use Type: None Smoking Status (MU): Never Smoked Tobacco Have You Smoked in the Last Year: No - Immunization History Most Recent Influenza Vaccination: none Most Recent Tetanus Shot: 06/27/11 Vaccination Up to Date: Yes Review of Systems All Other Systems Reviewed And Are Negative: Yes Constitutional: Negative: Fever, Chills Skin: Positive: Rash. Negative: Bruising Eyes: Negative: Drainage, Eye Redness ENT: Negative: Sore Throat, Ear Ache, Nasal Discharge, Sinus Congestion Respiratory: Negative: Shortness Of Breath, Cough Cardiovascular: Negative: Palpitations, Chest Pain Gastrointestinal: Negative: Abdominal Pain, Vomiting, Diarrhea, Nausea Genitourinary: Negative: Dysuria Musculoskeletal: Negative: Arthralgia, Decreased ROM, Edema Neurological: Negative: Weakness, Paresthesia, Numbness Physical Exam Triage Information Reviewed: Yes Appearance: Well-Appearing Vital Signs: Initial Vital Signs Temp 99.1 F 07/01/19 18:46 Pulse 94 07/01/19 18:46 Resp 18 07/01/19 18:46 BP 124/71 07/01/19 18:46 Pulse Ox 100 07/01/19 18:46 Vital Signs Reviewed: Yes Eyes: Positive: Conjunctiva Clear ENT: Positive: Pharynx normal, TMs normal. Negative: Nasal congestion, Nasal drainage Neck: Positive: Supple, Nontender, No Lymphadenopathy Respiratory: Positive: Lungs clear, Normal breath sounds, No respiratory distress Cardiovascular: Positive: RRR, No Murmur Abdomen Description: Positive: Nontender, No Organomegaly, Soft Bowel Sounds: Positive: Present Musculoskeletal: Positive: ROM Intact, No Edema Neurological: Positive: Alert Psychological: Positive: Age Appropriate Behavior Skin Exam: Normal, Other - pt has multiple red circular areas on BLE's ranging from 1cm to 4cm in diameter. some are flat and others are mildly raised/ indurated. They all [place]. None are petechial, scaly or blistering. Pt notes they are mildly tender when touched. Course/Dx - Differential Dx - Multi-Symptom Differential Diagnoses: Other - non toxic. no concern for cellulitis or fungal infection. not c/w insect bites. not c/w contact dermatitis or infestation. Looks c/w Erythema Nodosum. Will tx with an NSAID and close f/u. since not d/c for this dx in [employer], instructions printed from [employer]. - Diagnoses Provider Diagnosis: Acute maculopapular rash Discharge ED - Sign-Out/Discharge Documenting (check all that apply): Patient Departure All imaging exams completed and their final reports reviewed: No Studies - Discharge Plan Condition: Stable Disposition: HOME Referrals: Ileana Bermudez MD [Primary Care Provider] - Additional Instructions: CALL YOUR DOCTOR IN THE AM TO BE SEEN THIS WEEK. GO TO THE ER FOR ANY CHANGES OR WORSENING. TAKE YOUR IBUPROFEN 600MG EVERY 8 HOURS X3 DAYS THEN DIRECTED BY YOUR DOCTOR. YOU MAY WORK TOMORROW. SEE [facility] PATIENT EDUCATION: ERYTHEMA NODOSUM WHICH I HAVE PROVIDED. - Billing Disposition and Condition Condition: STABLE Disposition: Home
== END 2019-07-01 19:55 | disposition home or self-care (01) ==
LOC: UCCORT 16:55
DX: R21 Rash and other nonspecific skin eruption (principal)
CPT/HCPCS: 99212; G0463